=== PATIENT | male | born 1940 | race Caucasian/White ===

== ENCOUNTER 2017-06-26 12:58 | Outpatient (CLI) | payer MEDICARE ==
[~2017-06-26] VITALS: Ht 172.7 cm; Wt 76.2 kg
[2017-06-26 13:40] LABS: TOTAL HEMOGLOBIN 15.6 G/dl (14.0-18.0)
[2017-06-26] MEDS ORDERED: albuterol 2.5 MG/3 ML nebule NEB ONE (13:55)
== END 2017-06-26 23:59 | disposition home or self-care (01) ==
LOC: RT 12:58
PROVIDERS: ATTEND Internal Medicine Pulmonary Disease
DX: J45.991 Cough variant asthma (principal); F17.200 Nicotine dependence, unspecified, uncomplicated
CPT/HCPCS: 85018; 94060; 94640; 94727; 94729

== ENCOUNTER 2021-06-13 17:30 | Emergency (ER) | payer BC, MEDICARE ==
[~2021-06-13] VITALS: Ht 172.7 cm; Wt 75.0 kg
[2021-06-13 17:49] VITALS: BP 121/86
[2021-06-13 18:41] LABS: HEMOGLOBIN 14.1 g/dl (14.0-17.9); WHITE BLOOD COUNT 8.7 X10'3 (4.5-11.0)
[2021-06-13 18:43] LABS: BASOPHILS # (AUTO) 0.1 X10'3 (0-0.2); BASOPHILS % (AUTO) 1.2 % (0-1); EOSINOPHILS # (AUTO) 0.2 X10'3 (0-0.9); EOSINOPHILS % (AUTO) 2.5 % (0-6); HEMATOCRIT 41.8 % (42.0-52.0); LYMPHOCYTES # (AUTO) 1.2 X10'3 (1.1-4.8); LYMPHOCYTES % (AUTO) 14.1 % (21-51); MEAN CORPUSCULAR HEMOGLOBIN 30.6 PG (27.0-31.0); MEAN CORPUSCULAR HGB CONC 33.7 g/dL (33.0-36.5); MEAN CORPUSCULAR VOLUME 90.9 FL (78-98); MEAN PLATELET VOLUME 9.3 FL (7.4-10.4); MONOCYTES # (AUTO) 1.3 X10'3 (0-0.9); MONOCYTES % (AUTO) 14.5 % (2-12); NEUTROPHILS # (AUTO) 5.9 X10'3 (1.8-7.7); NEUTROPHILS % (AUTO) 67.7 % (42-75); PLATELET COUNT 197 X10'3 (140-440); RED CELL DISTRIBUTION WIDTH 14.5 % (11.5-14.5)
[2021-06-13 18:55] LABS: ALANINE AMINOTRANSFERASE 30 U/L (12-78); ALBUMIN 3.5 G/DL (3.4-5.0); ALBUMIN/GLOBULIN RATIO 0.8 (1.1-1.5); ALKALINE PHOSPHATASE 67 IU/L (46-116); ANION GAP 6 (8-16); ASPARTATE AMINO TRANSFERASE 22 U/L (10-37); BILIRUBIN,TOTAL 0.5 MG/DL (0.1-1.0); BLOOD UREA NITROGEN 21 MG/DL (7-18); BUN/CREATININE RATIO 15.6 (5.4-32.0); CALCIUM 10.1 MG/DL (8.5-10.1); CHLORIDE 102 MMOL/L (99-107); CREATININE 1.35 MG/DL (0.60-1.10); GLUCOSE 111 MG/DL (70-104); POTASSIUM 4.1 MMOL/L (3.5-5.1); SODIUM 139 MMOL/L (135-145); TOTAL CARBON DIOXIDE 30.6 MMOL/L (24-32); TOTAL PROTEIN 7.8 G/DL (6.4-8.2); eGFR 51 ML/MIN
[2021-06-13] MEDS ORDERED: normal saline 1000ml 1,000 ML IV ONE (19:05)
[2021-06-13 20:09] LABS: CLARITY,URINE CLEAR (Clear); COLOR,URINE YELLOW (Yellow); GLUCOSE, URINE NEGATIVE (Neg); KETONES,URINE TRACE mg/dl (Neg); LEUKOCYTE ESTERASE ,URINE NEGATIVE (Neg); NITRITES, URINE NEGATIVE (Neg); OCCULT BLOOD,URINE TRACE-INTACT (Neg); PH,URINE 5.5 (4.8-8.0); PROTEIN,URINE TRACE mg/dl (Neg); UROBILINOGEN,URINE 0.2 E.U/dL (0.2-1.0)
[2021-06-13 20:14] LABS: UA COLLECTION TYPE NON-SPECIFIED
[2021-06-13 20:16] LABS: BACTERIA,URINE FEW /HPF (Neg); CAL OXALATE CRYSTALS FEW /HPF (NEGATIVE); MUCUS STRANDS FEW /LPF (Neg); SQUAMOUS EPITHELIAL CELL,UR FEW /LPF (FEW)
[2021-06-13 20:17] LABS: RBC,URINE 0-2 /HPF (0-2); WBC,URINE 0-4 /HPF (0-4)
== END 2021-06-13 20:10 | disposition home or self-care (01) ==
LOC: ER 17:31
DX: B34.9 Viral infection, unspecified (principal); Z20.822 Contact with and (suspected) exposure to COVID-19; R50.9 Fever, unspecified; R51.9 Headache, unspecified; M79.10 Myalgia, unspecified site; Z88.0 Allergy status to penicillin; Z88.8 Allergy status to other drugs, medicaments and biological substances
CPT/HCPCS: 36415; 71045; 80053; 81001; 85025; 87502; 87503; 87635; 96360; 99284; C9803; J7030

== ENCOUNTER 2022-05-06 12:56 | Emergency (ER) | payer MEDICARE, BC ==
[~2022-05-06] VITALS: Ht 172.7 cm; Wt 72.7 kg
[2022-05-06 13:41] VITALS: BP 143/84
[2022-05-06] MEDS ORDERED: NIRM1TAB PO (15:15)
== END 2022-05-06 16:02 | disposition home or self-care (01) ==
LOC: ER 12:56
DX: B34.9 Viral infection, unspecified (principal); J45.909 Unspecified asthma, uncomplicated; Z88.0 Allergy status to penicillin; Z88.1 Allergy status to other antibiotic agents
CPT/HCPCS: 99283

== ENCOUNTER → 2022-12-06 | Outpatient (CLI) | payer MEDICARE, BC ==
[~2022-12-06] MED LIST: GADOTERATE MEGLUMINE 7.5 MMOL/15 ML VIAL IV ONE
== END | disposition home or self-care (01) ==
LOC: RAD 14:46
PROVIDERS: ATTEND Internal Medicine Interventional Cardiology
DX: R42 Dizziness and giddiness (principal)
CPT/HCPCS: 70553; A9575

== ENCOUNTER 2024-11-12 09:44 | Outpatient (CLI) | payer MEDICARE, BC ==
--- NOTE | 2024-11-12 13:34 | RADIOLOGY REPORT ---
EXAM: MR MRI LUMBAR SPINE HISTORY: PAIN,CONTUSION,ENTHESOPATHY COMPARISON: None TECHNIQUE: MRI was performed utilizing multiple appropriate imaging planes and pulse sequences. FINDINGS: For the purposes of this report, the last square-shaped vertebra is considered L5. Prior to any surg elaina, correlation with lumbar spine radiographs should be done. VERTEBRAE: No significant compression deformity is noted. No suspicious lesion is seen. SPINAL CORD: Terminates at the L1 level. No evidence of cord edema or myelomalacia within the parti ally visualized conus medullaris. PARASPINAL SOFT TISSUES: Unremarkable. INTERVERTEBRAL DISCS: T12-L1: No disc herniation, central canal stenosis or neural foramina narrowing. The posterior facet s and ligamentum flavum are unremarkable. L1-L2: Mild degenerative grade 1 anterolisthesis without pars defects, mild broad-based posterior dis c bulge, mild bilateral posterior facet and ligamentum flavum hypertrophy with mild central canal dean nosis mild bilateral neural foramina stenosis with impingement of the right exiting nerve. L2-L3: Mild degenerative grade 1 anterolisthesis without pars defects, 4 mm broad-based posterior dis c bulge, mild bilateral posterior facet and ligamentum flavum hypertrophy prominent posterior fat pad with mild central canal stenosis, impingement of the traversing lumbosacral nerve roots and mild stephany ateral neural foraminal stenosis with impingement of the right exiting nerve. L3-L4: Discectomy, disc spacer placement and bilateral transpedicular screw fixation with patent ce ntral canal and left neural foramina. Mild right neural foramina stenosis with abutment of the right exiting nerve noted. L4-L5: Discectomy, disc spacer placement and bilateral transpedicular screw fixation. The central canal is patent. Mild bilateral neural foramina stenosis with abutment of the bilateral exiting nerve s. L5-S1: Mild broad-based posterior disc bulge, moderate bilateral posterior facet and ligamenta flava hypertrophy with resultant mild central canal stenosis and moderate right and mild left neural minnie carlos stenosis with impingement of the right exiting nerve. OTHER: None. 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 L1-L2: Mild degenerative grade 1 anterolisthesis without pars defects, mild broad-based posterior dis c bulge, mild bilateral posterior facet and ligamentum flavum hypertrophy with mild central canal dean nosis mild bilateral neural foramina stenosis with impingement of the right exiting nerve. L2-L3: Mild degenerative grade 1 anterolisthesis without pars defects, 4 mm broad-based posterior dis c bulge, mild bilateral posterior facet and ligamentum flavum hypertrophy prominent posterior fat pad with mild central canal stenosis, impingement of the traversing lumbosacral nerve roots and mild stephany ateral neural foraminal stenosis with impingement of the right exiting nerve. L3-L4: Discectomy, disc spacer placement and bilateral transpedicular screw fixation with patent ce ntral canal and left neural foramina. Mild right neural foramina stenosis with abutment of the right exiting nerve noted. L4-L5: Discectomy, disc spacer placement and bilateral transpedicular screw fixation. The central canal is patent. Mild bilateral neural foramina stenosis with abutment of the bilateral exiting nerve s. L5-S1: Mild broad-based posterior disc bulge, moderate bilateral posterior facet and ligamenta flava hypertrophy with resultant mild central canal stenosis and moderate right and mild left neural minnie carlos stenosis with impingement of the right exiting nerve.
== END 2024-11-12 23:59 | disposition home or self-care (01) ==
LOC: MRI 09:44
PROVIDERS: ATTEND Family Medicine Sports Medicine
DX: S30.0XXA Contusion of lower back and pelvis, initial encounter (principal); M51.17 Intervertebral disc disorders with radiculopathy, lumbosacral region; M48.07 Spinal stenosis, lumbosacral region; M54.50 Low back pain, unspecified; M25.511 Pain in right shoulder; M25.551 Pain in right hip; M77.9 Enthesopathy, unspecified; X58.XXXA Exposure to other specified factors, initial encounter; Y93.89 Activity, other specified; Y92.89 Other specified places as the place of occurrence of the external cause; Y99.8 Other external cause status
CPT/HCPCS: 72148